=== PATIENT | female | born 1930 | race Caucasian/White ===

== ENCOUNTER 2018-02-20 08:49 | Inpatient (IN) ==
[2018-02-20 10:03] LABS: Basophils % 0.1 % (0.0-0.8); Eosinophils % 0.1 % (0.00-10.9); Hematocrit 31.2 VOL% (35.7-47.0); Hemoglobin 10.6 GM/DL (12.0-16.0); Immature Granulocytes % 0.5 %; Immature Granulocytes Absolute 0.04 #; Lymphocytes # 0.5 10*3/uL (1.4-4.0); Lymphocytes % 6.9 % (21.3-54.2); Mean Corpuscular Hemoglobin 28 PG (27-34); Mean Corpuscular Volume 81.9 FL (87-102); Mean Platelet Volume 10.5 FL (9.6-12.0); Monocytes # 0.8 10*3/uL (0.11-0.8); Monocytes % 10.8 % (1.7-12.7); Neutrophils # 6.3 10*3/uL (1.4-7.4); Neutrophils % 81.6 % (38.7-73.9); Platelet Count 251 T/CUMM (130-400); Red Blood Count 3.81 MC/CUMM (3.8-5.5); Red Cell Distribution Width 16.3 % (9.3-17.3); White Blood Count 7.7 T/CUMM (4-12)
[2018-02-20] MEDS ORDERED: FUROSEMIDE 40 MG/4 ML VIAL IV STA (10:24)
[2018-02-20 10:41] LABS: Albumin 3.5 G/DL (3.4-5.0); Bilirubin,Total 0.8 MG/DL (0.2-1.0); Calcium 9.5 MG/DL (8.5-10.1); Osmolality,Calculated 267.5 MOS/KG (273-304); Potassium 4.4 MMOL/L (3.5-5.1); Total Protein 6.9 G/DL (6.4-8.3)
[2018-02-20] MEDS ORDERED: ONDANSETRON 4 MG/2 ML VIAL IV PRN (14:17)
[2018-02-20] MEDS ORDERED: ACETAMINOPHEN 325 MG TABLET PO PRN (14:17)
[2018-02-20] MEDS ORDERED: HydrOXYzine PAMOATE 25 MG CAPSULE PO PRN (15:13)
[2018-02-20] MEDS ORDERED: NITROGLYCERIN SL 0.4 MG TABLET SL PRN (15:13)
[2018-02-20] MEDS ORDERED: LACTULOSE 20 GM/30 ML UDCUP PO PRN (15:13)
[2018-02-20] MEDS ORDERED: POLYETHYLENE GLYCOL POWDER 17 GM PACK PO PRN (15:13)
[2018-02-20] MEDS ORDERED: SODIUM CHLORIDE 0.9% 1,000 ML IV SCH (15:30)
[2018-02-20] MEDS: SIMVASTATIN 40 MG TABLET PO SCH (20:30)
[2018-02-20] MEDS: ASPIRIN EC 81 MG TABLET PO SCH (20:30)
[2018-02-20] MEDS: glipiZIDE 5 MG TABLET PO SCH (20:30)
[2018-02-20] MEDS: APIXABAN 2.5 MG TABLET PO SCH (20:31)
[2018-02-20] MEDS: METOPROLOL TARTRATE 25 MG TABLET PO SCH (20:31)
[2018-02-20] MEDS: metFORMIN 500 MG TABLET PO SCH (20:32)
[2018-02-20] MEDS: AMIODARONE 200 MG TABLET PO SCH (20:32)
[2018-02-20 21:46] LABS: Apearance,Urine CLEAR (Clear); Bilirubin,Urine Negative (Negative); Blood, Urine Negative (Negative); Glucose,Urine (UA) Negative (Negative); Ketones,Urine Negative (Negative); Nitrite,Urine Negative (Negative); Protein,Urine Negative; RBC,Urine <1 /HPF (0-4); Squamous Epithelial Cell,Urine Occasional /HPF (0-10); Urine Color Yellow (Yellow); Urine Urobilinogen < 2.0 EU/DL (0.2-1.0); WBC,Urine <1 /HPF (0-6)
[2018-02-20] MEDS: CYCLOSPORINE OPH EMUL BOTH EYES SCH (22:16)
[2018-02-21 05:42] LABS: Basophils % 0.4 % (0.0-0.8); Eosinophils # 0.1 10*3/uL (0.0-0.87); Eosinophils % 1.3 % (0.00-10.9); Hematocrit 27.6 VOL% (35.7-47.0); Immature Granulocytes % 0.4 %; Immature Granulocytes Absolute 0.02 #; Lymphocytes # 0.9 10*3/uL (1.4-4.0); Lymphocytes % 16.5 % (21.3-54.2); Mean Corpuscular HGB Conc 32.6 GM/DL (32-36); Mean Corpuscular Hemoglobin 28 PG (27-34); Mean Corpuscular Volume 85.4 FL (87-102); Mean Platelet Volume 11.5 FL (9.6-12.0); Monocytes # 0.8 10*3/uL (0.11-0.8); Monocytes % 15.9 % (1.7-12.7); Neutrophils # 3.4 10*3/uL (1.4-7.4); Neutrophils % 65.5 % (38.7-73.9); Red Blood Count 3.23 MC/CUMM (3.8-5.5); Red Cell Distribution Width 16.5 % (9.3-17.3); White Blood Count 5.2 T/CUMM (4-12)
[2018-02-21 05:46] LABS: Platelet Count 145 T/CUMM (130-400)
[2018-02-21 06:05] LABS: Burr Cells Slight; Hypochromasia 1+; Lymphocytes 23 % (20-55); Ovalocytes Slight; Platelet Estimate Normal; Segmented Neutrophils 63 % (50-85); Total Cells Counted 100
[2018-02-21 06:19] LABS: Calcium 8.7 MG/DL (8.5-10.1); Osmolality,Calculated 266.8 MOS/KG (273-304); Risk Ratio 1.83; Thyroid Stimulating Hormone 2.42 uIU/ml (0.358-3.74); VLDL CHOLESTEROL 12.6 MG/DL
[2018-02-21] MEDS: METOPROLOL TARTRATE 25 MG TABLET PO SCH ×2 (09:20→20:37)
[2018-02-21] MEDS: PANTOPRAZOLE 40 MG TABLET PO SCH (09:20)
[2018-02-21] MEDS: MULTIVITAMIN (OCUVITE) TABLET PO SCH (09:20)
[2018-02-21] MEDS: metFORMIN 500 MG TABLET PO SCH (09:20)
[2018-02-21] MEDS: CHOLECALCIFEROL 1,000 UNIT TABLET PO SCH (09:20)
[2018-02-21] MEDS: CALCIUM (CARBONATE) 600 MG TABLET PO SCH ×2 (09:20→20:35)
[2018-02-21] MEDS: POTASSIUM CHLORIDE 20 MEQ TABLET PO SCH (09:21)
[2018-02-21] MEDS: CYCLOSPORINE OPH EMUL BOTH EYES SCH ×2 (09:21→20:36)
[2018-02-21] MEDS: glipiZIDE 5 MG TABLET PO SCH (09:21)
[2018-02-21] MEDS: AMIODARONE 200 MG TABLET PO SCH ×2 (09:21→20:35)
[2018-02-21] MEDS: APIXABAN 2.5 MG TABLET PO SCH ×2 (09:21→20:35)
[2018-02-21] MEDS: ISOSORBIDE MONONITRATE 30 MG TABLET PO SCH (09:21)
[2018-02-21] MEDS: SODIUM CHLORIDE 5% OPH SOLN 15 ML BOTTLE LEFT EYE SCH ×2 (09:28→20:36)
[2018-02-21] MEDS: SIMVASTATIN 40 MG TABLET PO SCH (20:34)
[2018-02-21] MEDS: ASPIRIN EC 81 MG TABLET PO SCH (20:38)
[2018-02-22 06:20] LABS: Basophils % 0.5 % (0.0-0.8); Eosinophils # 0.1 10*3/uL (0.0-0.87); Hematocrit 27.4 VOL% (35.7-47.0); Hemoglobin 9.4 GM/DL (12.0-16.0); Immature Granulocytes % 0.7 %; Immature Granulocytes Absolute 0.04 #; Lymphocytes # 0.9 10*3/uL (1.4-4.0); Lymphocytes % 15.2 % (21.3-54.2); Mean Corpuscular HGB Conc 34.3 GM/DL (32-36); Mean Corpuscular Hemoglobin 28 PG (27-34); Mean Platelet Volume 10.4 FL (9.6-12.0); Monocytes # 0.8 10*3/uL (0.11-0.8); Monocytes % 13.3 % (1.7-12.7); Neutrophils # 4.1 10*3/uL (1.4-7.4); Neutrophils % 69.3 % (38.7-73.9); Platelet Count 202 T/CUMM (130-400); Red Blood Count 3.34 MC/CUMM (3.8-5.5); Red Cell Distribution Width 16.5 % (9.3-17.3); White Blood Count 5.9 T/CUMM (4-12)
[2018-02-22 06:49] LABS: Calcium 8.5 MG/DL (8.5-10.1); Osmolality,Calculated 270.1 MOS/KG (273-304); Potassium 4.6 MMOL/L (3.5-5.1)
[2018-02-22 06:53] LABS: Albumin 2.8 G/DL (3.4-5.0); Bilirubin,Direct 0.35 MG/DL (0.0-0.20); Bilirubin,Indirect 0.4 MG/DL (0.0-1.0); Bilirubin,Total 0.7 MG/DL (0.2-1.0)
[2018-02-22] MEDS: PANTOPRAZOLE 40 MG TABLET PO SCH (08:17)
[2018-02-22] MEDS: CHOLECALCIFEROL 1,000 UNIT TABLET PO SCH (08:18)
[2018-02-22] MEDS: AMIODARONE 200 MG TABLET PO SCH (08:19)
[2018-02-22] MEDS: MULTIVITAMIN (OCUVITE) TABLET PO SCH (08:19)
[2018-02-22] MEDS: APIXABAN 2.5 MG TABLET PO SCH ×2 (08:20→21:07)
[2018-02-22] MEDS: metFORMIN 500 MG TABLET PO SCH ×2 (08:21→16:57)
[2018-02-22] MEDS: SODIUM CHLORIDE 5% OPH SOLN 15 ML BOTTLE LEFT EYE SCH ×2 (08:21→21:09)
[2018-02-22] MEDS: CALCIUM (CARBONATE) 600 MG TABLET PO SCH ×2 (08:21→21:07)
[2018-02-22] MEDS: ISOSORBIDE MONONITRATE 30 MG TABLET PO SCH (08:21)
[2018-02-22] MEDS: CYCLOSPORINE OPH EMUL BOTH EYES SCH ×2 (08:22→21:09)
[2018-02-22] MEDS: POTASSIUM CHLORIDE 20 MEQ TABLET PO SCH (08:22)
[2018-02-22] MEDS: METOPROLOL TARTRATE 25 MG TABLET PO SCH ×2 (08:23→21:08)
[2018-02-22] MEDS: glipiZIDE 5 MG TABLET PO SCH ×2 (08:23→16:57)
[2018-02-22] MEDS ORDERED: SODIUM CHLORIDE 0.9% 1,000 ML IV SCH (11:30)
[2018-02-22] MEDS: DESITIN 4OZ/NYSTATIN 15 GRAM MIXTURE PASTE TOP SCH ×2 (11:45→21:09)
[2018-02-22] MEDS ORDERED: SKIN HEALING OINT (AQUAPHOR) 50 GM TUBE TOP PRN (15:16)
[2018-02-22] MEDS: amLODIPine 2.5 MG TABLET PO SCH (16:18)
[2018-02-22] MEDS: SIMVASTATIN 40 MG TABLET PO SCH (21:07)
[2018-02-22] MEDS: ASPIRIN EC 81 MG TABLET PO SCH (21:08)
[2018-02-23 06:52] LABS: Calcium 8.9 MG/DL (8.5-10.1); Osmolality,Calculated 266.9 MOS/KG (273-304); Potassium 4.9 MMOL/L (3.5-5.1)
[2018-02-23] MEDS: metFORMIN 500 MG TABLET PO SCH (09:56)
[2018-02-23] MEDS: CHOLECALCIFEROL 1,000 UNIT TABLET PO SCH (09:56)
[2018-02-23] MEDS: POTASSIUM CHLORIDE 20 MEQ TABLET PO SCH (09:56)
[2018-02-23] MEDS: APIXABAN 2.5 MG TABLET PO SCH (09:57)
[2018-02-23] MEDS: PANTOPRAZOLE 40 MG TABLET PO SCH (09:57)
[2018-02-23] MEDS: CALCIUM (CARBONATE) 600 MG TABLET PO SCH (09:57)
[2018-02-23] MEDS: amLODIPine 2.5 MG TABLET PO SCH (09:57)
[2018-02-23] MEDS: METOPROLOL TARTRATE 25 MG TABLET PO SCH (09:57)
[2018-02-23] MEDS: MULTIVITAMIN (OCUVITE) TABLET PO SCH (09:57)
[2018-02-23] MEDS: glipiZIDE 5 MG TABLET PO SCH (09:58)
[2018-02-23] MEDS: ISOSORBIDE MONONITRATE 30 MG TABLET PO SCH (09:58)
[2018-02-23] MEDS: SODIUM CHLORIDE 5% OPH SOLN 15 ML BOTTLE LEFT EYE SCH (09:58)
[2018-02-23] MEDS: CYCLOSPORINE OPH EMUL BOTH EYES SCH (09:59)
[2018-02-23] MEDS: DESITIN 4OZ/NYSTATIN 15 GRAM MIXTURE PASTE TOP SCH (09:59)
[2018-02-23] MEDS ORDERED: amLODIPine 5 MG TABLET PO SCH (14:30)
[2018-02-23 16:07] VITALS: BP 158/70
== END 2018-02-23 16:16 | disposition home or self-care (01) | DRG 292 ==
LOC: N.ED 08:49 → N.EDINP 13:18 → N.2E 15:22
PROVIDERS: ADMIT Internal Medicine; ATTEND Internal Medicine

== ENCOUNTER 2018-07-20 17:58 | Inpatient (IN) ==
[2018-07-20 18:23] LABS: Basophils % 0.4 % (0.0-0.8); Eosinophils # 0.1 10*3/uL (0.0-0.87); Eosinophils % 0.8 % (0.00-10.9); Hematocrit 25.6 VOL% (35.7-47.0); Immature Granulocytes % 0.4 %; Immature Granulocytes Absolute 0.05 #; Lymphocytes # 1.2 10*3/uL (1.4-4.0); Mean Corpuscular HGB Conc 31.3 GM/DL (32-36); Mean Corpuscular Hemoglobin 25 PG (27-34); Mean Corpuscular Volume 80.5 FL (87-102); Mean Platelet Volume 9.6 FL (9.6-12.0); Monocytes # 0.7 10*3/uL (0.11-0.8); Monocytes % 6.4 % (1.7-12.7); Neutrophils # 9.1 10*3/uL (1.4-7.4); Platelet Count 255 T/CUMM (130-400); Red Blood Count 3.18 MC/CUMM (3.8-5.5); Red Cell Distribution Width 16.9 % (9.3-17.3); White Blood Count 11.2 T/CUMM (4-12)
[2018-07-20 18:32] LABS: INR 1.2; PT Patient Result 12.7 SECS
[2018-07-20 18:42] LABS: ABG Base Excess 1.2 MMOL/L (-2.5-2.5); ABG HCO3 25.5 MMOL/L (20-26); ABG Oxygen Saturation 97.9 % (95-100); ABG PCO2 33.1 MM HG (35-48); ABG PH 7.478 (7.35-7.45); ABG PO2 89.3 MM HG (80-95); ABG TCO2 22.8 MMOL/L (23-27)
[2018-07-20 18:57] LABS: Albumin 3.1 G/DL (3.4-5.0); Calcium 8.6 MG/DL (8.5-10.1); Osmolality,Calculated 284.4 MOS/KG (273-304); Potassium 3.6 MMOL/L (3.5-5.1); Total Protein 6.8 G/DL (6.4-8.3)
[2018-07-20 19:23] LABS: Amorphous Crystals,Urine Occasional /HPF (Few); Apearance,Urine Slightly Hazy (Clear); Bacteria,Urine Occasional /HPF (Few); Bilirubin,Urine Negative (Negative); Blood, Urine Negative (Negative); Glucose,Urine (UA) Negative (Negative); Ketones,Urine Negative (Negative); Mucus,Urine Occasional /LPF (Occasional); Nitrite,Urine Negative (Negative); Protein,Urine Negative; Urine Color Yellow (Yellow); Urine Specific Gravity 1.008 (1.001-1.035); Urine Urobilinogen < 2.0 EU/DL (0.2-1.0); WBC,Urine 9 /HPF (0-6)
[2018-07-20] MEDS ORDERED: FUROSEMIDE 40 MG/4 ML VIAL IV STA (22:04)
[2018-07-20] MEDS ORDERED: FUROSEMIDE 100 MG/10 ML VIAL ONE (22:08)
[2018-07-20] MEDS ORDERED: POTASSIUM CHLORIDE 20 MEQ TABLET PO STA (22:20)
[2018-07-20] MEDS ORDERED: DEXTROSE 50% 25 GM/50 ML SYRINGE IV PRN (23:32)
[2018-07-20] MEDS ORDERED: MAGNESIUM SULF RIDER 4 GM in PREMIX 1 EACH IV PRN (23:32)
[2018-07-20] MEDS ORDERED: GLUCAGON 1 MG VIAL IM PRN (23:32)
[2018-07-20] MEDS ORDERED: MAGNESIUM SULF RIDER 2 GM in PREMIX 1 EACH IV PRN (23:32)
[2018-07-21] MEDS: INSULIN GLARGINE 100 UNIT/ML SUBCUT SCH ×2 (00:40→21:45)
[2018-07-21 04:59] LABS: Basophils % 0.4 % (0.0-0.8); Eosinophils # 0.2 10*3/uL (0.0-0.87); Eosinophils % 1.8 % (0.00-10.9); Hematocrit 23.9 VOL% (35.7-47.0); Hemoglobin 7.6 GM/DL (12.0-16.0); Immature Granulocytes % 0.5 %; Immature Granulocytes Absolute 0.05 #; Lymphocytes # 1.9 10*3/uL (1.4-4.0); Lymphocytes % 19.6 % (21.3-54.2); Mean Corpuscular HGB Conc 31.8 GM/DL (32-36); Mean Corpuscular Hemoglobin 26 PG (27-34); Mean Corpuscular Volume 80.5 FL (87-102); Mean Platelet Volume 9.7 FL (9.6-12.0); Monocytes # 0.9 10*3/uL (0.11-0.8); Monocytes % 9.9 % (1.7-12.7); Neutrophils # 6.4 10*3/uL (1.4-7.4); Neutrophils % 67.8 % (38.7-73.9); Platelet Count 215 T/CUMM (130-400); Red Blood Count 2.97 MC/CUMM (3.8-5.5); Red Cell Distribution Width 16.8 % (9.3-17.3); White Blood Count 9.5 T/CUMM (4-12)
[2018-07-21 05:22] LABS: % Iron Saturation 5.9 % (18-50); Calcium 8.5 MG/DL (8.5-10.1); Ferritin 23.7 ng/ml (8-252); Osmolality,Calculated 284.1 MOS/KG (273-304); Potassium 3.9 MMOL/L (3.5-5.1); Risk Ratio 1.94; VLDL CHOLESTEROL 16.2 MG/DL
[2018-07-21] MEDS: FUROSEMIDE 40 MG/4 ML VIAL IV SCH ×2 (08:41→16:49)
[2018-07-21] MEDS: cycloSPORINE OPH EMUL 1 VIAL BOTH EYES SCH ×2 (08:42→21:45)
[2018-07-21] MEDS: ACETAMINOPHEN 325 MG TABLET PO PRN ×2 (08:42→21:44)
[2018-07-21] MEDS: SODIUM CHLORIDE 5% OPH SOLN 15 ML BOTTLE LEFT EYE SCH ×2 (08:42→21:45)
[2018-07-21] MEDS: ASPIRIN CHEW 81 MG TABLET PO SCH (08:43)
[2018-07-21] MEDS: CALCIUM CARBONATE CHEW 500 MG TABLET PO SCH ×2 (08:43→21:44)
[2018-07-21] MEDS: ISOSORBIDE MONONITRATE 30 MG TABLET PO SCH (08:43)
[2018-07-21] MEDS: SIMVASTATIN 10 MG TABLET PO SCH (08:44)
[2018-07-21] MEDS: POTASSIUM CHLORIDE 20 MEQ TABLET PO SCH (08:44)
[2018-07-21] MEDS: MULTIVITAMIN (OCUVITE) TABLET PO SCH (08:44)
[2018-07-21] MEDS: METOPROLOL TARTRATE 25 MG TABLET PO SCH ×2 (08:44→21:45)
[2018-07-21] MEDS: INSULIN LISPRO 100 UNIT/ML SUBCUT SCH ×2 (08:45→16:50)
[2018-07-21] MEDS ORDERED: SODIUM CHLORIDE 0.9% 1,000 ML IV PRN (13:56)
[2018-07-21] MEDS ORDERED: metOLazone 5 MG TABLET PO SCH (18:00)
[2018-07-22] MEDS: ACETAMINOPHEN 325 MG TABLET PO PRN (01:38)
[2018-07-22 05:22] LABS: Calcium 8.4 MG/DL (8.5-10.1); Osmolality,Calculated 291.7 MOS/KG (273-304); Potassium 3.1 MMOL/L (3.5-5.1)
[2018-07-22 06:28] LABS: Hematocrit 30.4 VOL% (35.7-47.0); Hemoglobin 9.8 GM/DL (12.0-16.0)
[2018-07-22] MEDS: INSULIN LISPRO 100 UNIT/ML SUBCUT SCH ×2 (09:02→17:37)
[2018-07-22] MEDS: ISOSORBIDE MONONITRATE 30 MG TABLET PO SCH (09:04)
[2018-07-22] MEDS: ASPIRIN CHEW 81 MG TABLET PO SCH (09:04)
[2018-07-22] MEDS: FUROSEMIDE 40 MG/4 ML VIAL IV SCH ×2 (09:04→17:26)
[2018-07-22] MEDS: SIMVASTATIN 10 MG TABLET PO SCH (09:05)
[2018-07-22] MEDS: POLYETHYLENE GLYCOL POWDER 17 GM PACK PO PRN (09:05)
[2018-07-22] MEDS: METOPROLOL TARTRATE 25 MG TABLET PO SCH ×2 (09:05→21:05)
[2018-07-22] MEDS: MULTIVITAMIN (OCUVITE) TABLET PO SCH (09:05)
[2018-07-22] MEDS: CALCIUM CARBONATE CHEW 500 MG TABLET PO SCH ×2 (09:05→21:05)
[2018-07-22] MEDS: POTASSIUM CHLORIDE 20 MEQ TABLET PO SCH ×3 (09:10→21:06)
[2018-07-22] MEDS: cycloSPORINE OPH EMUL 1 VIAL BOTH EYES SCH ×2 (09:10→21:05)
[2018-07-22] MEDS: SODIUM CHLORIDE 5% OPH SOLN 15 ML BOTTLE LEFT EYE SCH ×2 (09:10→21:06)
[2018-07-22] MEDS: DOCUSATE SODIUM 100 MG CAPSULE PO SCH ×2 (11:00→21:06)
[2018-07-22] MEDS: POTASSIUM CHLORIDE 20 MEQ TABLET PO PRN ×4 (11:01→23:42)
[2018-07-22] MEDS: INSULIN GLARGINE 100 UNIT/ML SUBCUT SCH (21:04)
[2018-07-23] MEDS: POTASSIUM CHLORIDE 20 MEQ TABLET PO PRN ×2 (02:00→04:31)
[2018-07-23 04:23] LABS: Calcium 8.5 MG/DL (8.5-10.1); Osmolality,Calculated 289.8 MOS/KG (273-304); Potassium 3.4 MMOL/L (3.5-5.1)
[2018-07-23] MEDS: MULTIVITAMIN (OCUVITE) TABLET PO SCH (08:21)
[2018-07-23] MEDS: POTASSIUM CHLORIDE 20 MEQ TABLET PO SCH ×2 (08:21→20:45)
[2018-07-23] MEDS: CALCIUM CARBONATE CHEW 500 MG TABLET PO SCH ×2 (08:21→20:45)
[2018-07-23] MEDS: ASPIRIN CHEW 81 MG TABLET PO SCH (08:22)
[2018-07-23] MEDS: DOCUSATE SODIUM 100 MG CAPSULE PO SCH ×2 (08:22→20:45)
[2018-07-23] MEDS: ISOSORBIDE MONONITRATE 30 MG TABLET PO SCH (08:22)
[2018-07-23] MEDS: METOPROLOL TARTRATE 25 MG TABLET PO SCH ×2 (08:22→20:45)
[2018-07-23] MEDS: INSULIN LISPRO 100 UNIT/ML SUBCUT SCH ×2 (08:22→16:57)
[2018-07-23] MEDS: SIMVASTATIN 10 MG TABLET PO SCH (08:22)
[2018-07-23] MEDS: FUROSEMIDE 40 MG/4 ML VIAL IV SCH ×2 (08:23→15:03)
[2018-07-23] MEDS: cycloSPORINE OPH EMUL 1 VIAL BOTH EYES SCH ×2 (08:23→20:46)
[2018-07-23] MEDS: SODIUM CHLORIDE 5% OPH SOLN 15 ML BOTTLE LEFT EYE SCH ×2 (08:23→20:45)
[2018-07-23] MEDS: ZINC OXIDE PASTE 113 GM TUBE TOP SCH ×2 (15:00→20:46)
[2018-07-23] MEDS: INSULIN GLARGINE 100 UNIT/ML SUBCUT SCH (21:42)
[2018-07-24 04:18] LABS: Basophils % 0.4 % (0.0-0.8); Eosinophils # 0.3 10*3/uL (0.0-0.87); Eosinophils % 2.3 % (0.00-10.9); Hemoglobin 9.6 GM/DL (12.0-16.0); Immature Granulocytes % 0.4 %; Immature Granulocytes Absolute 0.04 #; Lymphocytes # 1.5 10*3/uL (1.4-4.0); Lymphocytes % 13.9 % (21.3-54.2); Mean Corpuscular Hemoglobin 26 PG (27-34); Mean Corpuscular Volume 81.3 FL (87-102); Monocytes # 1.1 10*3/uL (0.11-0.8); Monocytes % 9.8 % (1.7-12.7); Neutrophils # 8.1 10*3/uL (1.4-7.4); Neutrophils % 73.2 % (38.7-73.9); Platelet Count 222 T/CUMM (130-400); Red Blood Count 3.69 MC/CUMM (3.8-5.5); Red Cell Distribution Width 16.5 % (9.3-17.3)
[2018-07-24 04:31] LABS: Calcium 8.4 MG/DL (8.5-10.1); Osmolality,Calculated 295.7 MOS/KG (273-304)
[2018-07-24] MEDS: POTASSIUM CHLORIDE 20 MEQ TABLET PO PRN ×4 (05:26→18:10)
[2018-07-24] MEDS: INSULIN LISPRO 100 UNIT/ML SUBCUT SCH ×2 (08:52→16:17)
[2018-07-24] MEDS: POTASSIUM CHLORIDE 20 MEQ TABLET PO SCH ×2 (08:52→21:17)
[2018-07-24] MEDS: MULTIVITAMIN (OCUVITE) TABLET PO SCH (08:52)
[2018-07-24] MEDS: CALCIUM CARBONATE CHEW 500 MG TABLET PO SCH ×2 (08:53→21:16)
[2018-07-24] MEDS: SIMVASTATIN 10 MG TABLET PO SCH (08:53)
[2018-07-24] MEDS: ASPIRIN CHEW 81 MG TABLET PO SCH (08:53)
[2018-07-24] MEDS: DOCUSATE SODIUM 100 MG CAPSULE PO SCH ×2 (08:53→21:16)
[2018-07-24] MEDS: FUROSEMIDE 40 MG/4 ML VIAL IV SCH ×2 (08:53→16:18)
[2018-07-24] MEDS: ISOSORBIDE MONONITRATE 30 MG TABLET PO SCH (08:53)
[2018-07-24] MEDS: METOPROLOL TARTRATE 25 MG TABLET PO SCH ×2 (08:53→21:17)
[2018-07-24] MEDS: ZINC OXIDE PASTE 113 GM TUBE TOP SCH ×2 (09:00→21:17)
[2018-07-24] MEDS: SODIUM CHLORIDE 5% OPH SOLN 15 ML BOTTLE LEFT EYE SCH ×2 (09:00→21:18)
[2018-07-24] MEDS: cycloSPORINE OPH EMUL 1 VIAL BOTH EYES SCH ×2 (09:02→21:16)
[2018-07-24] MEDS: INSULIN GLARGINE 100 UNIT/ML SUBCUT SCH (21:17)
[2018-07-25 04:19] LABS: Basophils % 0.1 % (0.0-0.8); Hematocrit 29.8 VOL% (35.7-47.0); Hemoglobin 9.5 GM/DL (12.0-16.0); Immature Granulocytes % 0.6 %; Immature Granulocytes Absolute 0.06 #; Lymphocytes % 9.1 % (21.3-54.2); Mean Corpuscular HGB Conc 31.9 GM/DL (32-36); Mean Corpuscular Hemoglobin 26 PG (27-34); Mean Corpuscular Volume 81.6 FL (87-102); Mean Platelet Volume 10.1 FL (9.6-12.0); Monocytes # 0.6 10*3/uL (0.11-0.8); Monocytes % 5.7 % (1.7-12.7); Neutrophils # 8.8 10*3/uL (1.4-7.4); Neutrophils % 84.5 % (38.7-73.9); Platelet Count 202 T/CUMM (130-400); Red Blood Count 3.65 MC/CUMM (3.8-5.5); White Blood Count 10.5 T/CUMM (4-12)
[2018-07-25 04:41] LABS: Calcium 8.4 MG/DL (8.5-10.1); Osmolality,Calculated 296.1 MOS/KG (273-304); Potassium 4.5 MMOL/L (3.5-5.1)
[2018-07-25] MEDS: cycloSPORINE OPH EMUL 1 VIAL BOTH EYES SCH (08:25)
[2018-07-25] MEDS: SODIUM CHLORIDE 5% OPH SOLN 15 ML BOTTLE LEFT EYE SCH (08:25)
[2018-07-25] MEDS: ISOSORBIDE MONONITRATE 30 MG TABLET PO SCH (08:26)
[2018-07-25] MEDS: POTASSIUM CHLORIDE 20 MEQ TABLET PO SCH (08:26)
[2018-07-25] MEDS: SIMVASTATIN 10 MG TABLET PO SCH (08:26)
[2018-07-25] MEDS: CALCIUM CARBONATE CHEW 500 MG TABLET PO SCH (08:27)
[2018-07-25] MEDS: ASPIRIN CHEW 81 MG TABLET PO SCH (08:27)
[2018-07-25] MEDS: INSULIN LISPRO 100 UNIT/ML SUBCUT SCH (08:27)
[2018-07-25] MEDS: MULTIVITAMIN (OCUVITE) TABLET PO SCH (08:27)
[2018-07-25] MEDS: POLYETHYLENE GLYCOL POWDER 17 GM PACK PO PRN (08:27)
[2018-07-25] MEDS: METOPROLOL TARTRATE 25 MG TABLET PO SCH (08:27)
[2018-07-25] MEDS: FUROSEMIDE 40 MG/4 ML VIAL IV SCH (08:28)
[2018-07-25] MEDS: DOCUSATE SODIUM 100 MG CAPSULE PO SCH (08:28)
[2018-07-25] MEDS ORDERED: LACTULOSE 20 GM/30 ML UDCUP PO PRN (09:53)
[2018-07-25] MEDS: ZINC OXIDE PASTE 113 GM TUBE TOP SCH (10:10)
[2018-07-25] MEDS ORDERED: SODIUM PHOSPHATE ENEMA 133 ML BOTTLE RECTAL ONE (11:58)
[2018-07-25 12:37] VITALS: BP 124/50
== END 2018-07-25 15:07 | disposition swing bed (61) | DRG 291 ==
LOC: EDUNIT# → N.ED 17:58 → SUATTDRO 21:56 → N.EDINP 21:56 → N.TELEN 23:13
PROVIDERS: ADMIT Internal Medicine Geriatric Medicine; ATTEND Internal Medicine

== ENCOUNTER 2018-07-29 09:17 | Inpatient (IN) ==
[2018-07-29] MEDS ORDERED: FUROSEMIDE 100 MG/10 ML VIAL IV STA (09:40)
[2018-07-29] MEDS ORDERED: ALBUTEROL/IPRATROPIUM 3 ML NEB RESP TX STA (09:40)
[2018-07-29] MEDS ORDERED: ONDANSETRON 4 MG/2 ML VIAL IV STA (09:43)
[2018-07-29 10:02] LABS: Basophils % 0.2 % (0.0-0.8); Eosinophils # 0.2 10*3/uL (0.0-0.87); Eosinophils % 1.6 % (0.00-10.9); Hematocrit 31.2 VOL% (35.7-47.0); Hemoglobin 9.9 GM/DL (12.0-16.0); Immature Granulocytes % 0.4 %; Immature Granulocytes Absolute 0.04 #; Lymphocytes # 1.3 10*3/uL (1.4-4.0); Lymphocytes % 11.2 % (21.3-54.2); Mean Corpuscular HGB Conc 31.7 GM/DL (32-36); Mean Corpuscular Hemoglobin 27 PG (27-34); Mean Corpuscular Volume 83.4 FL (87-102); Mean Platelet Volume 9.9 FL (9.6-12.0); Monocytes # 0.8 10*3/uL (0.11-0.8); Neutrophils # 8.9 10*3/uL (1.4-7.4); Neutrophils % 79.6 % (38.7-73.9); Platelet Count 203 T/CUMM (130-400); Red Blood Count 3.74 MC/CUMM (3.8-5.5); Red Cell Distribution Width 17.9 % (9.3-17.3); White Blood Count 11.2 T/CUMM (4-12)
[2018-07-29 10:13] LABS: INR 1.3; PT Patient Result 13.8 SECS; Partial Thromboplastin Time 30.8 SECS (0-40)
[2018-07-29 10:22] LABS: Alanine Aminotransferase 28 U/L (13-56); Albumin 2.5 G/DL (3.4-5.0); Alkaline Phosphatase 137 U/L (45-117); Aspartate Amino Transferase 37 U/L (0-37); Blood Urea Nitrogen 71 MG/DL (7-18); Calcium 9.1 MG/DL (8.5-10.1); Glucose 172 MG/DL (74-106); Osmolality,Calculated 290.4 MOS/KG (273-304); Potassium 4.9 MMOL/L (3.5-5.1); Sodium 133 MMOL/L (136-145); Total Protein 6.6 G/DL (6.4-8.3); Troponin I < 0.015 NG/ML (0.00-0.045)
[2018-07-29] MEDS ORDERED: methylPREDNISolone SOD SUC 125 MG/2 ML VIAL IV STA (10:44)
[2018-07-29] MEDS ORDERED: LEVOFLOXACIN INJ 750 MG in PREMIX 1 EACH IV STA (10:44)
[2018-07-29] MEDS ORDERED: GLUCAGON 1 MG VIAL IM PRN (12:18)
[2018-07-29] MEDS ORDERED: DEXTROSE 50% 25 GM/50 ML SYRINGE IV PRN (12:18)
[2018-07-29] MEDS ORDERED: DOCUSATE SODIUM 100 MG CAPSULE PO PRN (12:22)
[2018-07-29] MEDS ORDERED: POTASSIUM CHLORIDE 20 MEQ TABLET PO PRN (12:25)
[2018-07-29] MEDS: INSULIN LISPRO 100 UNIT/ML SUBCUT SCH ×2 (16:50→21:43)
[2018-07-29] MEDS: ASPIRIN EC 81 MG TABLET PO SCH (18:14)
[2018-07-29] MEDS ORDERED: glipiZIDE 5 MG TABLET PO SCH (21:00)
[2018-07-29] MEDS: cycloSPORINE OPH EMUL 1 VIAL BOTH EYES SCH (21:42)
[2018-07-29] MEDS: SIMVASTATIN 10 MG TABLET PO SCH (21:42)
[2018-07-29] MEDS: APIXABAN 5 MG TABLET PO SCH (21:42)
[2018-07-29] MEDS: CALCIUM (CARBONATE) 600 MG TABLET PO SCH (21:42)
[2018-07-29] MEDS: METOPROLOL TARTRATE 25 MG TABLET PO SCH (21:43)
[2018-07-29] MEDS: FUROSEMIDE 40 MG/4 ML VIAL IV SCH (21:43)
[2018-07-30 04:33] LABS: Hematocrit 29.2 VOL% (35.7-47.0); Hemoglobin 9.1 GM/DL (12.0-16.0); Immature Granulocytes % 0.4 %; Immature Granulocytes Absolute 0.04 #; Lymphocytes # 0.7 10*3/uL (1.4-4.0); Lymphocytes % 8.2 % (21.3-54.2); Mean Corpuscular HGB Conc 31.2 GM/DL (32-36); Mean Corpuscular Hemoglobin 26 PG (27-34); Mean Corpuscular Volume 82.5 FL (87-102); Mean Platelet Volume 10.5 FL (9.6-12.0); Monocytes # 0.3 10*3/uL (0.11-0.8); Monocytes % 3.2 % (1.7-12.7); Neutrophils # 7.9 10*3/uL (1.4-7.4); Neutrophils % 88.2 % (38.7-73.9); Platelet Count 204 T/CUMM (130-400); Red Blood Count 3.54 MC/CUMM (3.8-5.5); Red Cell Distribution Width 18.2 % (9.3-17.3); White Blood Count 8.9 T/CUMM (4-12)
[2018-07-30 04:59] LABS: Calcium 8.6 MG/DL (8.5-10.1); Osmolality,Calculated 298.5 MOS/KG (273-304); Potassium 5.1 MMOL/L (3.5-5.1)
[2018-07-30] MEDS: METOPROLOL TARTRATE 25 MG TABLET PO SCH (08:24)
[2018-07-30] MEDS: PANTOPRAZOLE 40 MG TABLET PO SCH (08:29)
[2018-07-30] MEDS: FUROSEMIDE 40 MG/4 ML VIAL IV SCH ×2 (08:29→16:10)
[2018-07-30] MEDS: APIXABAN 5 MG TABLET PO SCH ×2 (08:29→20:33)
[2018-07-30] MEDS: CALCIUM (CARBONATE) 600 MG TABLET PO SCH ×2 (08:30→20:32)
[2018-07-30] MEDS: POTASSIUM CHLORIDE 20 MEQ TABLET PO SCH (08:30)
[2018-07-30] MEDS: ISOSORBIDE MONONITRATE 30 MG TABLET PO SCH (08:30)
[2018-07-30] MEDS: CHOLECALCIFEROL 1,000 UNIT TABLET PO SCH (08:30)
[2018-07-30] MEDS: glipiZIDE 5 MG TABLET PO SCH ×2 (08:30→16:10)
[2018-07-30] MEDS: cycloSPORINE OPH EMUL 1 VIAL BOTH EYES SCH ×2 (08:31→20:32)
[2018-07-30] MEDS: INSULIN LISPRO 100 UNIT/ML SUBCUT SCH ×4 (08:38→20:33)
[2018-07-30] MEDS: SIMVASTATIN 10 MG TABLET PO SCH (20:32)
[2018-07-30] MEDS: INSULIN GLARGINE 100 UNIT/ML SUBCUT SCH (20:33)
[2018-07-30] MEDS: ASPIRIN EC 81 MG TABLET PO SCH (20:36)
[2018-07-31] MEDS: METOPROLOL TARTRATE 25 MG TABLET PO SCH ×3 (00:39→21:17)
[2018-07-31 02:56] LABS: Basophils % 0.1 % (0.0-0.8); Eosinophils # 0.1 10*3/uL (0.0-0.87); Eosinophils % 1.2 % (0.00-10.9); Hematocrit 28.2 VOL% (35.7-47.0); Hemoglobin 8.9 GM/DL (12.0-16.0); Immature Granulocytes % 0.5 %; Immature Granulocytes Absolute 0.06 #; Lymphocytes # 1.7 10*3/uL (1.4-4.0); Lymphocytes % 14.5 % (21.3-54.2); Mean Corpuscular HGB Conc 31.6 GM/DL (32-36); Mean Corpuscular Hemoglobin 26 PG (27-34); Mean Corpuscular Volume 82.2 FL (87-102); Mean Platelet Volume 10.5 FL (9.6-12.0); Monocytes % 8.8 % (1.7-12.7); Neutrophils # 8.6 10*3/uL (1.4-7.4); Neutrophils % 74.9 % (38.7-73.9); Platelet Count 201 T/CUMM (130-400); Red Blood Count 3.43 MC/CUMM (3.8-5.5); Red Cell Distribution Width 18.3 % (9.3-17.3); White Blood Count 11.5 T/CUMM (4-12)
[2018-07-31 03:28] LABS: Calcium 8.2 MG/DL (8.5-10.1); Osmolality,Calculated 291.5 MOS/KG (273-304); Potassium 4.7 MMOL/L (3.5-5.1)
[2018-07-31] MEDS: INSULIN LISPRO 100 UNIT/ML SUBCUT SCH ×4 (07:36→21:17)
[2018-07-31] MEDS: FUROSEMIDE 40 MG/4 ML VIAL IV SCH ×2 (08:03→17:02)
[2018-07-31] MEDS: CALCIUM (CARBONATE) 600 MG TABLET PO SCH ×2 (08:04→21:16)
[2018-07-31] MEDS: POTASSIUM CHLORIDE 20 MEQ TABLET PO SCH (08:04)
[2018-07-31] MEDS: PANTOPRAZOLE 40 MG TABLET PO SCH (08:04)
[2018-07-31] MEDS: glipiZIDE 5 MG TABLET PO SCH ×2 (08:04→17:01)
[2018-07-31] MEDS: APIXABAN 5 MG TABLET PO SCH (08:04)
[2018-07-31] MEDS: CHOLECALCIFEROL 1,000 UNIT TABLET PO SCH (08:04)
[2018-07-31] MEDS: ISOSORBIDE MONONITRATE 30 MG TABLET PO SCH (08:05)
[2018-07-31] MEDS: cycloSPORINE OPH EMUL 1 VIAL BOTH EYES SCH ×2 (08:05→21:16)
[2018-07-31] MEDS ORDERED: VANCOMYCIN INJ 1,000 MG in SODIUM CHLORIDE 0.9% 250 ML IV ONE (09:14)
[2018-07-31] MEDS ORDERED: VANCOMYCIN INJ 1,500 MG in SODIUM CHLORIDE 0.9% 500 ML IV ONE (09:30)
[2018-07-31] MEDS: LEVOFLOXACIN INJ 500 MG in PREMIX 1 EACH IV SCH (13:47)
[2018-07-31] MEDS: INSULIN GLARGINE 100 UNIT/ML SUBCUT SCH (21:16)
[2018-07-31] MEDS: ASPIRIN EC 81 MG TABLET PO SCH (21:16)
[2018-07-31] MEDS: APIXABAN 2.5 MG TABLET PO SCH (21:16)
[2018-07-31] MEDS: SIMVASTATIN 10 MG TABLET PO SCH (21:16)
[2018-08-01 04:45] LABS: Basophils % 0.2 % (0.0-0.8); Eosinophils # 0.2 10*3/uL (0.0-0.87); Eosinophils % 1.7 % (0.00-10.9); Hematocrit 28.3 VOL% (35.7-47.0); Hemoglobin 8.9 GM/DL (12.0-16.0); Immature Granulocytes % 0.4 %; Immature Granulocytes Absolute 0.04 #; Lymphocytes # 1.3 10*3/uL (1.4-4.0); Lymphocytes % 12.8 % (21.3-54.2); Mean Corpuscular HGB Conc 31.4 GM/DL (32-36); Mean Corpuscular Hemoglobin 26 PG (27-34); Mean Corpuscular Volume 82.7 FL (87-102); Mean Platelet Volume 10.5 FL (9.6-12.0); Monocytes # 0.8 10*3/uL (0.11-0.8); Monocytes % 8.2 % (1.7-12.7); Neutrophils # 7.6 10*3/uL (1.4-7.4); Neutrophils % 76.7 % (38.7-73.9); Platelet Count 185 T/CUMM (130-400); Red Blood Count 3.42 MC/CUMM (3.8-5.5); Red Cell Distribution Width 18.6 % (9.3-17.3); White Blood Count 9.9 T/CUMM (4-12)
[2018-08-01 05:05] LABS: Calcium 8.1 MG/DL (8.5-10.1); Osmolality,Calculated 295.2 MOS/KG (273-304); Potassium 4.5 MMOL/L (3.5-5.1)
[2018-08-01] MEDS: INSULIN LISPRO 100 UNIT/ML SUBCUT SCH ×4 (08:07→21:26)
[2018-08-01] MEDS ORDERED: VANCOMYCIN INJ 1,250 MG in SODIUM CHLORIDE 0.9% 250 ML IV PRN (08:45)
[2018-08-01] MEDS: FUROSEMIDE 40 MG/4 ML VIAL IV SCH ×2 (09:56→16:07)
[2018-08-01] MEDS: glipiZIDE 5 MG TABLET PO SCH ×2 (09:57→16:07)
[2018-08-01] MEDS: cycloSPORINE OPH EMUL 1 VIAL BOTH EYES SCH ×2 (09:57→21:18)
[2018-08-01] MEDS: ISOSORBIDE MONONITRATE 30 MG TABLET PO SCH (09:57)
[2018-08-01] MEDS: METOPROLOL TARTRATE 25 MG TABLET PO SCH ×2 (09:57→21:19)
[2018-08-01] MEDS: CALCIUM (CARBONATE) 600 MG TABLET PO SCH ×2 (09:57→21:18)
[2018-08-01] MEDS: POTASSIUM CHLORIDE 20 MEQ TABLET PO SCH (09:57)
[2018-08-01] MEDS: APIXABAN 2.5 MG TABLET PO SCH ×2 (09:57→21:19)
[2018-08-01] MEDS: CHOLECALCIFEROL 1,000 UNIT TABLET PO SCH (09:57)
[2018-08-01] MEDS: PANTOPRAZOLE 40 MG TABLET PO SCH (09:58)
[2018-08-01] MEDS: LACTULOSE 20 GM/30 ML UDCUP PO PRN (16:11)
[2018-08-01] MEDS: ASPIRIN EC 81 MG TABLET PO SCH (18:16)
[2018-08-01] MEDS: DESITIN 4OZ/NYSTATIN 15 GRAM MIXTURE PASTE TOP SCH (21:20)
[2018-08-01] MEDS: SIMVASTATIN 10 MG TABLET PO SCH (21:20)
[2018-08-01] MEDS: INSULIN GLARGINE 100 UNIT/ML SUBCUT SCH (21:27)
[2018-08-02 08:13] LABS: Basophils % 0.2 % (0.0-0.8); Eosinophils # 0.2 10*3/uL (0.0-0.87); Hematocrit 28.8 VOL% (35.7-47.0); Hemoglobin 9.1 GM/DL (12.0-16.0); Immature Granulocytes % 0.4 %; Immature Granulocytes Absolute 0.04 #; Lymphocytes # 1.2 10*3/uL (1.4-4.0); Lymphocytes % 10.8 % (21.3-54.2); Mean Corpuscular HGB Conc 31.6 GM/DL (32-36); Mean Corpuscular Hemoglobin 26 PG (27-34); Mean Corpuscular Volume 83.5 FL (87-102); Mean Platelet Volume 10.3 FL (9.6-12.0); Monocytes # 0.8 10*3/uL (0.11-0.8); Monocytes % 6.7 % (1.7-12.7); Neutrophils % 79.9 % (38.7-73.9); Platelet Count 212 T/CUMM (130-400); Red Blood Count 3.45 MC/CUMM (3.8-5.5); Red Cell Distribution Width 19.1 % (9.3-17.3); White Blood Count 11.2 T/CUMM (4-12)
[2018-08-02] MEDS: CALCIUM (CARBONATE) 600 MG TABLET PO SCH (08:13)
[2018-08-02] MEDS: FUROSEMIDE 40 MG/4 ML VIAL IV SCH ×2 (08:13→16:21)
[2018-08-02] MEDS: glipiZIDE 5 MG TABLET PO SCH ×2 (08:13→16:56)
[2018-08-02] MEDS: INSULIN LISPRO 100 UNIT/ML SUBCUT SCH ×3 (08:14→16:56)
[2018-08-02] MEDS: ISOSORBIDE MONONITRATE 30 MG TABLET PO SCH (08:14)
[2018-08-02] MEDS: CHOLECALCIFEROL 1,000 UNIT TABLET PO SCH (08:14)
[2018-08-02] MEDS: PANTOPRAZOLE 40 MG TABLET PO SCH (08:14)
[2018-08-02] MEDS: APIXABAN 2.5 MG TABLET PO SCH (08:14)
[2018-08-02] MEDS: METOPROLOL TARTRATE 25 MG TABLET PO SCH (08:14)
[2018-08-02] MEDS: POTASSIUM CHLORIDE 20 MEQ TABLET PO SCH (08:15)
[2018-08-02] MEDS: DESITIN 4OZ/NYSTATIN 15 GRAM MIXTURE PASTE TOP SCH (08:15)
[2018-08-02] MEDS: cycloSPORINE OPH EMUL 1 VIAL BOTH EYES SCH (08:16)
[2018-08-02 08:20] LABS: Calcium 8.5 MG/DL (8.5-10.1); Osmolality,Calculated 291.2 MOS/KG (273-304); Potassium 4.1 MMOL/L (3.5-5.1)
[2018-08-02] MEDS: LACTULOSE 20 GM/30 ML UDCUP PO PRN (09:23)
[2018-08-02] MEDS ORDERED: BISACODYL 5 MG TABLET PO ONE (09:52)
[2018-08-02] MEDS: LEVOFLOXACIN INJ 500 MG in PREMIX 1 EACH IV SCH (12:10)
[2018-08-02] MEDS ORDERED: LACTULOSE 20 GM/30 ML UDCUP PO ONE (13:03)
[2018-08-02] MEDS ORDERED: SODIUM PHOSPHATE ENEMA 133 ML BOTTLE RECTAL ONE (13:43)
[2018-08-02 17:37] VITALS: BP 128/88
== END 2018-08-02 17:00 | disposition swing bed (61) | DRG 291 ==
LOC: EDBD → EDUNIT# → N.ED 09:17 → N.EDINP 11:06 → SUATTDRO 11:06 → N.EDINP 12:45 → N.5E 13:19
PROVIDERS: ADMIT Hospitalist; ATTEND Internal Medicine

== ENCOUNTER 2018-09-06 04:37 | Inpatient (IN) ==
[2018-09-06] MEDS ORDERED: SODIUM CHLORIDE 0.9% 1,000 ML IV STA ×2 (04:48→05:19)
[2018-09-06] MEDS ORDERED: VANCOMYCIN INJ 1,000 MG in SODIUM CHLORIDE 0.9% 250 ML IV STA ×2 (04:48→05:14)
[2018-09-06] MEDS ORDERED: CEFEPIME 1,000 MG in SODIUM CHLORIDE 0.9% 100 ML IV STA (04:48)
[2018-09-06 05:07] LABS: Basophils % 0.2 % (0.0-0.8); Hematocrit 21.4 VOL% (35.7-47.0); Immature Granulocytes % 0.5 %; Immature Granulocytes Absolute 0.03 #; Lymphocytes # 1.1 10*3/uL (1.4-4.0); Lymphocytes % 17.6 % (21.3-54.2); Mean Corpuscular HGB Conc 28.5 GM/DL (32-36); Mean Corpuscular Hemoglobin 27 PG (27-34); Monocytes # 0.2 10*3/uL (0.11-0.8); Monocytes % 3.2 % (1.7-12.7); NRBC # 0.03 10*3/uL; Neutrophils % 78.5 % (38.7-73.9); Platelet Count 146 T/CUMM (130-400); Red Cell Distribution Width 22.7 % (9.3-17.3); White Blood Count 6.3 T/CUMM (4-12)
[2018-09-06 05:18] LABS: Hemoglobin 6.1 GM/DL (12.0-16.0)
[2018-09-06 05:20] LABS: Alanine Aminotransferase 33 U/L (13-56); Albumin 1.6 G/DL (3.4-5.0); Alkaline Phosphatase 110 U/L (45-117); Aspartate Amino Transferase 62 U/L (0-37); Blood Urea Nitrogen 157 MG/DL (7-18); Calcium 7.1 MG/DL (8.5-10.1); Glucose 100 MG/DL (74-106); Potassium 3.9 MMOL/L (3.5-5.1); Sodium 143 MMOL/L (136-145); Total Protein 4.5 G/DL (6.4-8.3)
[2018-09-06] MEDS ORDERED: SODIUM CHLORIDE 0.9% 1,000 ML IV PRN (05:35)
[2018-09-06 05:41] LABS: Band Neutrophils 13 % (0-10); Eosinophils 1 % (0-10); Lymphocytes 14 % (20-55); Segmented Neutrophils 68 % (50-85); Total Cells Counted 100
[2018-09-06 05:42] LABS: Hypochromasia 1+; Ovalocytes Slight; Platelet Estimate Normal
[2018-09-06 05:45] LABS: Amorphous Crystals,Urine Occasional /HPF (Few); Apearance,Urine CLOUDY (Clear); Bacteria,Urine Occasional /HPF (Few); Bilirubin,Urine Negative (Negative); Blood, Urine Large mg/dL (Negative); Glucose,Urine (UA) 50 mg/dL (Negative); Hyaline Casts,Urine 25 /LPF (0-3); Ketones,Urine Negative (Negative); Mucus,Urine Occasional /LPF (Occasional); Nitrite,Urine Negative (Negative); Protein,Urine 100 MG/DL; RBC,Urine 1235 /HPF (0-4); Squamous Epithelial Cell,Urine Occasional /HPF (0-10); Urine Color Amber (Yellow); WBC,Urine 179 /HPF (0-6)
[2018-09-06] MEDS ORDERED: ONDANSETRON 4 MG/2 ML VIAL IV PRN (07:40)
[2018-09-06] MEDS ORDERED: SODIUM CHLORIDE 0.9% 1,350 ML IV ONE (07:42)
[2018-09-06] MEDS ORDERED: ALBUTEROL/IPRATROPIUM 3 ML NEB RESP TX PRN (07:43)
[2018-09-06] MEDS ORDERED: PIPERACILLIN/TAZOBACTAM 3,375 MG in SODIUM CHLORIDE 0.9% 100 ML IV SCH (08:00)
[2018-09-06] MEDS ORDERED: LACTATED RINGERS 1,000 ML IV SCH (08:00)
[2018-09-06 09:44] VITALS: BP 39/18
[2018-09-06] MEDS ORDERED: cycloSPORINE OPH EMUL 1 VIAL BOTH EYES SCH (21:00)
[2018-09-06] MEDS ORDERED: SODIUM CHLORIDE 5% OPH SOLN 15 ML BOTTLE LEFT EYE SCH (21:00)
== END 2018-09-06 11:18 | disposition expired | DRG 871 ==
LOC: EDUNIT# → N.ED 04:37 → N.EDINP 07:40 → N.2E 09:12
PROVIDERS: ADMIT Hospitalist; ATTEND Hospitalist